=== PATIENT | male | born 1995 | race Caucasian/White ===

== ENCOUNTER 2017-11-26 12:04 | Inpatient (IN) | payer MEDICAID ==
[~2017-11-26] VITALS: Ht 175.3 cm; Wt 71.8 kg
[2017-11-26] MEDS ORDERED: SODIUM CHLORIDE 0.9% 1,000ML IVBOLUS ONE (13:00)
[2017-11-26 13:06] LABS: BASOPHILS # (AUTO) 0.01 x10^3/uL (0-0.1); BASOPHILS % (AUTO) 0 % (0-1); EOSINOPHILS # (AUTO) 0.01 x10^3/uL (0-0.4); EOSINOPHILS % (AUTO) 0 % (1-7); LYMPHOCYTES # (AUTO) 0.81 x10^3/uL (1-3.4); LYMPHOCYTES % (AUTO) 16 % (22-44); MD NO; MEAN CORPUSCULAR HEMOGLOBIN 32.9 pg (27.5-34.5); MEAN CORPUSCULAR HGB CONC 33.7 g/dL (33.2-36.2); MEAN CORPUSCULAR VOLUME 97.8 fL (81-97); MEAN PLATELET VOLUME 7.1 fL (7.4-10.4); MONOCYTES # (AUTO) 0.23 x10^3/uL (0.2-0.8); MONOCYTES % (AUTO) 5 % (2-9); NEUTROPHILS # (AUTO) 4.13 x10^3/uL (1.8-6.8); NEUTROPHILS % (AUTO) 80 % (42-75); PLATELET COUNT 351 x10^3/uL (130-400); RED BLOOD COUNT 4.86 x10^6/uL (4.38-5.82); RED CELL DISTRIBUTION WIDTH 13.6 % (9.4-14.8)
[2017-11-26 13:18] LABS: ALANINE AMINOTRANSFERASE 311 U/L (12-78); ALBUMIN 4.6 g/dL (3.4-5.0); ANION GAP 24 mmol/L (5-15); CALCIUM 8.7 mg/dL (8.5-10.1); CHLORIDE 104 mmol/L (98-107); CREATININE 1.33 mg/dL (0.7-1.3)
[2017-11-26 13:21] LABS: ALKALINE PHOSPHATASE 254 U/L (45-117); BILIRUBIN,TOTAL 0.4 mg/dL (0.2-1.0); TOTAL PROTEIN 9.7 g/dL (6.4-8.2)
[2017-11-26] MEDS ORDERED: REGULAR INSULIN 62.5 UNITS in SODIUM CHLORIDE 0.9% 249.375 ML IV PRN ×2 (13:27→14:30)
[2017-11-26 13:30] LABS: ACETONE, SERUM Large (80mg/dL) mg/dL (Negative)
[2017-11-26] MEDS ORDERED: MORPHINE SULFATE 4 MG/ML, 1ML IVPush PRN (13:30)
[2017-11-26] MEDS ORDERED: POTASSIUM CHLORIDE 40 MEQ in SODIUM CHLORIDE 0.9% 500 ML IV ONE (13:30)
[2017-11-26] MEDS ORDERED: METOCLOPRAMIDE 5 MG/ML, 2ML IVPush ONE (13:30)
[2017-11-26] MEDS ORDERED: METOCLOPRAMIDE 5 MG/ML, 2ML ONE (13:30)
[2017-11-26] MEDS ORDERED: MORPHINE SULFATE 4 MG/ML, 1ML ONE (13:30)
[2017-11-26] MEDS ORDERED: NS + 20MEQ KCL 1,000 ML IV SCH (14:10)
[2017-11-26] MEDS ORDERED: D5%-0.45NACL+KCL 20MEQ 1,000 ML IV SCH (14:10)
[2017-11-26 14:19] LABS: PH, VENOUS 7.106 pH (7.320-7.420)
[2017-11-26] MEDS ORDERED: ONDANSETRON 2MG/ML, 2ML IVPush PRN (14:30)
[2017-11-26] MEDS ORDERED: INSU100V9 SQ-INSULIN (14:30)
[2017-11-26] MEDS ORDERED: SERT25TA PO (14:30)
[2017-11-26] MEDS ORDERED: POTA99TA24 PO (14:30)
[2017-11-26] MEDS ORDERED: INSU100I34 SQ-INSULIN (14:30)
[2017-11-26] MEDS ORDERED: POLYETHYLENE GLYCOL 17 GM PACKET PO PRN (14:30)
[2017-11-26 15:08] LABS: HEMOGLOBIN A1C 10.5 % (4.2-6.3)
[2017-11-26 18:07] LABS: ANION GAP 12 mmol/L (5-15); CALCIUM 8.3 mg/dL (8.5-10.1); CHLORIDE 115 mmol/L (98-107); CREATININE 0.92 mg/dL (0.7-1.3)
[2017-11-26] MEDS: SODIUM CHLORIDE 0.45% 1,000 ML IV SCH (18:42)
[2017-11-26] MEDS ORDERED: INSULIN GLARGINE 100 UNITS/ML, PEN SQ-INSULIN SCH (21:00)
[2017-11-26] MEDS: INSULIN LISPRO 100 UNITS/ML, PEN SQ-INSULIN SCH (21:00)
[2017-11-26] MEDS: ENOXAPARIN 40 MG/0.4 ML SQ SCH (21:20)
[2017-11-26] MEDS: ACETAMINOPHEN 325 MG TABLET PO PRN (21:28)
[2017-11-27] MEDS: ACETAMINOPHEN 325 MG TABLET PO PRN ×2 (04:26→08:24)
[2017-11-27 04:55] LABS: ALBUMIN 3.1 g/dL (3.4-5.0); ANION GAP 14 mmol/L (5-15); CALCIUM 8.1 mg/dL (8.5-10.1); CHLORIDE 106 mmol/L (98-107)
[2017-11-27 05:07] LABS: ALANINE AMINOTRANSFERASE 200 U/L (12-78); ALKALINE PHOSPHATASE 160 U/L (45-117); BILIRUBIN,TOTAL 0.6 mg/dL (0.2-1.0); CHOL/HDL RATIO 5.3; CHOLESTEROL, TOTAL 190 mg/dL (140-239); CREATININE 0.98 mg/dL (0.7-1.3); HDL CHOL % 19 % (26-37); HDL CHOLESTEROL (DIRECT) 36 mg/dL (40-60); LDL CHOLESTEROL,CALCULATED 82 mg/dL (54-169); LDL/HDL RATIO 2.3 (0.5-3.0); THYROID STIMULATING HORMONE 0.265 mIU/L (0.358-3.740); TOTAL PROTEIN 6.4 g/dL (6.4-8.2); TRIGLYCERIDES 362 mg/dL (50-200); VLDL CHOLESTEROL 72 mg/dL (0-25)
[2017-11-27 05:29] LABS: MICROSCOPIC INDICATED
[2017-11-27] MEDS: INSULIN LISPRO 100 UNITS/ML, PEN SQ-INSULIN SCH ×4 (05:31→20:10)
[2017-11-27 05:43] LABS: CULTURE INDICATED? NO
[2017-11-27 06:01] LABS: AMPHETAMINE SCREEN, URINE Negative (Negative); BARBITURATE SCREEN, URINE Negative (Negative); BENZODIAZEPINE SCREEN, URINE Negative (Negative); CANNABINOID SCREEN, URINE Positive (Negative); COCAINE SCREEN, URINE Negative (Negative); METHADONE SCREEN, URINE Negative (Negative); OPIATE SCREEN, URINE Positive (Negative)
[2017-11-27 06:30] VITALS: BP 107/67
[2017-11-27] MEDS: SODIUM CHLORIDE 0.45% 1,000 ML IV SCH ×2 (08:08→21:17)
[2017-11-27] MEDS: INSULIN GLARGINE 100 UNITS/ML, PEN SQ-INSULIN SCH ×2 (08:24→20:16)
[2017-11-27] MEDS: SENNA/DOCUSATE TABLET PO SCH (08:25)
[2017-11-27 09:08] LABS: FREE T4 (FREE THYROXINE) 0.89 ng/dL (0.76-1.46)
[2017-11-27 12:00] VITALS: BP 115/63
[2017-11-27] MEDS: SERTRALINE 50MG TABLET PO SCH (12:21)
[2017-11-27] MEDS ORDERED: D5%-0.45NACL+KCL 20MEQ 1,000 ML IV SCH (14:10)
[2017-11-27 19:53] VITALS: BP 126/79
[2017-11-27] MEDS: ENOXAPARIN 40 MG/0.4 ML SQ SCH (20:10)
[2017-11-28 01:42] VITALS: BP 120/66
[2017-11-28 05:14] LABS: CALCIUM 8.4 mg/dL (8.5-10.1); CHLORIDE 110 mmol/L (98-107)
[2017-11-28 05:20] LABS: ALANINE AMINOTRANSFERASE 176 U/L (12-78); ALKALINE PHOSPHATASE 152 U/L (45-117); ANION GAP 12 mmol/L (5-15); BILIRUBIN,TOTAL 0.5 mg/dL (0.2-1.0); CREATININE 0.65 mg/dL (0.7-1.3); TOTAL PROTEIN 6.4 g/dL (6.4-8.2)
[2017-11-28] MEDS: INSULIN LISPRO 100 UNITS/ML, PEN SQ-INSULIN SCH ×2 (07:00→12:32)
[2017-11-28] MEDS ORDERED: POTASSIUM CHLORIDE 20 MEQ TAB.ER.PRT PO ONE (07:30)
[2017-11-28 08:15] VITALS: BP 127/82
[2017-11-28] MEDS: SERTRALINE 50MG TABLET PO SCH (08:46)
[2017-11-28] MEDS: INSULIN GLARGINE 100 UNITS/ML, PEN SQ-INSULIN SCH (08:46)
[2017-11-28] MEDS: SENNA/DOCUSATE TABLET PO SCH (08:46)
[2017-11-28] MEDS: SODIUM CHLORIDE 0.45% 1,000 ML IV SCH (10:53)
[2017-11-28 13:14] VITALS: BP 122/82
== END 2017-11-28 15:25 | disposition home or self-care (01) | DRG 682 ==
LOC: ED 13:49 → EDIP 13:51 → CCU 14:43 → 3NE 11-27 07:07 → DCLOUNGE 11-28 15:20
PROVIDERS: ADMIT Internal Medicine; ATTEND Internal Medicine
DX: N17.0 Acute kidney failure with tubular necrosis (principal); E10.10 Type 1 diabetes mellitus with ketoacidosis without coma; K31.84 Gastroparesis; E10.43 Type 1 diabetes mellitus with diabetic autonomic (poly)neuropathy; F32.9 Major depressive disorder, single episode, unspecified; G47.00 Insomnia, unspecified; F12.90 Cannabis use, unspecified, uncomplicated; Z82.49 Family history of ischemic heart disease and other diseases of the circulatory system; Z83.3 Family history of diabetes mellitus; Z91.19 Patient's noncompliance with other medical treatment and regimen
CPT/HCPCS: 36415; 80048; 80053; 80061; 80307; 81001; 82010; 82803; 82962; 83036; 83690; 83735; 84100; 84439; 84443; 84481; 85025; 87081; 96361; 96365; 96375; J1650; J1815; J3480; J2765; J7030; J7040; J7050